=== PATIENT | male | born 1995 | race Caucasian/White ===

== ENCOUNTER 2017-01-11 07:29 | Emergency (ER) | payer OTHER ==
[~2017-01-11] VITALS: Ht 175.3 cm; Wt 97.7 kg
[2017-01-11] MEDS ORDERED: WELLTAB38 PO (07:45)
[2017-01-11] MEDS ORDERED: EFFE75CA75 PO (07:45)
[2017-01-11 10:16] LABS: ANION GAP 7 MEQ/L (8-16); BLOOD UREA NITROGEN 17 MG/DL (7-18); CALCIUM LEVEL 8.8 MG/DL (8.5-10.1); CARBON DIOXIDE LEVEL 28 MEQ/L (21-32); CHLORIDE LEVEL 105 MEQ/L (98-107); CREATININE FOR GFR 0.86 MG/DL (0.70-1.30); GLOMERULAR FILTRATION RATE > 60.0 (>60); GLUCOSE, FASTING 89 MG/DL (70-105); POTASSIUM SERUM 4.4 MEQ/L (3.5-5.1); SODIUM LEVEL 140 MEQ/L (136-145)
--- NOTE | 2017-01-11 10:18 | REP ---
Chest x-ray: Two views. History: Chest pain . Comparison study: No comparisons . Findings: The lungs are well inflated and free of infiltrate. The pleural angles are sharp. The heart size is normal. Pulmonary vasculature is not increased. No significant bony abnormality is seen. Impression: Negative chest x-ray. Signed by Ovi Walton MD 01/11/2017 10:09 A
[2017-01-11 10:31] VITALS: BP 146/68
--- NOTE | 2017-01-12 08:20 | ECGEPIP ---
Stationary ECG Study [facility] - ED Test Date: 2017-01-11 Pat Name: JACKSON GONZALEZ Department: Room: - Gender: M [employer]: : [id number] Requested By: Marylu Lomax Order Number: [id number] Reading MD: Marylu Lomax Measurements Intervals [place] Rate: 69 P: 32 UT: 149 QRS: 70 QRSD: 104 T: 28 QT: 413 QTc: 443 Interpretive Statements SINUS RHYTHM NO PRIOR FOR COMPARISON Electronically Signed On 01-12-2017 8:19:49 EDT by Marylu Lomax
== END 2017-01-11 10:33 | disposition home or self-care (01) ==
LOC: M ED 07:29
DX: R07.9 Chest pain, unspecified (principal); F17.210 Nicotine dependence, cigarettes, uncomplicated; Z82.49 Family history of ischemic heart disease and other diseases of the circulatory system; Z79.899 Other long term (current) drug therapy; Z88.0 Allergy status to penicillin